=== PATIENT | female | born 1975 | race Two or more races ===

== ENCOUNTER 2017-04-03 09:19 | Emergency (ER) | payer MEDICAID ==
[~2017-04-03] VITALS: Ht 160 cm; Wt 96.6 kg
[2017-04-03 10:09] LABS: Basophils # (auto) 0.1 uL; Eosinophils # (auto) 0.4 uL; Lymphocytes # (auto) 2.7 uL; Lymphocytes % (auto) 27.7 % (10.0-50.0); Monocytes # (auto) 0.4 uL; Nucleated Red Blood Cells % 0.1 %
[2017-04-03 10:10] LABS: Basophils % (auto) 1.1 % (0.0-2.0); Eosinophils % (auto) 3.8 % (0.0-7.0); Mean Corpuscular Hemoglobin 23.8 pg (28.0-32.0); Mean Corpuscular Hgb Conc. 32.5 g/dL (32.0-36.0); Mean Corpuscular Volume 73.3 fL (80.0-100.0); Monocytes % (auto) 4.4 % (0.0-12.0); Platelet Count (auto) 326 10^3/uL (140-450); Red Cell Distribution Width 18.1 % (11.8-14.3); White Blood Cell 9.6 10^3/uL (4.4-10.8)
[2017-04-03 10:33] LABS: Albumin 3.4 g/dL (3.4-5.0); BUN/Creatinine Ratio 12.9; Calcium 8.9 mg/dL (8.5-10.1); Potassium 4.1 mmol/L (3.5-5.1)
[2017-04-03 10:35] LABS: Bilirubin, Total 0.2 mg/dL (0.2-1.0); Total Protein 8.2 g/dL (6.4-8.2)
[2017-04-03] MEDS: KETOROLAC TROMETH 30 MG/ML 1ML VIAL IV ONE (15:36)
[2017-04-03] MEDS: METOCLOPRAMIDE HCL 5MG/ml INJ 2ml VIAL IV ONE (15:36)
[2017-04-03] MEDS: SODIUM CHLORIDE 0.9% 500 ML IVB ONE (15:36)
[2017-04-03 16:52] LABS: Urine Bilirubin Negative (Negative); Urine Blood Negative /uL (Negative); Urine Color Yellow (Yellow); Urine Glucose Normal (Normal); Urine Ketone Negative (Negative); Urine Nitrite Negative (Negative); Urine RBC <1 /hpf (0 - 4); Urine Squamous Epithelial Cell FEW /hpf (<5); Urine Urobilinogen Normal (Negative)
[2017-04-03 17:31] VITALS: BP 164/82
== END 2017-04-03 17:40 | disposition home or self-care (01) ==
LOC: ER 09:19
DX: K76.0 Fatty (change of) liver, not elsewhere classified (principal); Z82.49 Family history of ischemic heart disease and other diseases of the circulatory system
CPT/HCPCS: 36415; 76705; 80053; 81001; 82150; 83690; 84702; 85025; 96361; 96374; 96375; 99285; J1885; J2765

== ENCOUNTER 2018-07-01 17:36 | Emergency (ER) | payer MEDICAID ==
[~2018-07-01] VITALS: Ht 162.6 cm; Wt 98.4 kg
[2018-07-01 17:54] VITALS: BP 169/82
== END 2018-07-01 23:09 | disposition left against medical advice (07) ==
LOC: ER 17:36
DX: M25.561 Pain in right knee (principal); Z53.21 Procedure and treatment not carried out due to patient leaving prior to being seen by health care provider
CPT/HCPCS: 73562

== ENCOUNTER 2024-03-04 10:16 | Emergency (ER) | payer MEDICAID ==
[~2024-03-04] VITALS: Ht 160 cm; Wt 85.5 kg
[2024-03-04] MEDS: cloNIDine HCL 0.1 MG TAB PO ONE (11:32)
[2024-03-04] MEDS: ACETAMINOPHEN 500 MG TAB PO ONE (11:32)
[2024-03-04] MEDS: INSULIN LISPRO (HUMAN) 100 UNITS/ML ML SC ONE ×2 (11:37→15:00)
[2024-03-04 11:39] VITALS: PULSE 100; RESP 18; O2SAT 98
[2024-03-04 11:52] LABS: Basophils # (auto) 0 10 ^3/uL (0-0.2); Basophils % (auto) 0.6 % (0.0-2.0); Eosinophils # (auto) 0.2 10 ^3/uL (0-0.8); Eosinophils % (auto) 3.2 % (0.0-7.0); Hematocrit 36.6 % (36.0-46.0); Hemoglobin 11.8 g/dL (12.2-16.2); Lymphocytes % (auto) 30.7 % (10.0-50.0); Mean Corpuscular Hemoglobin 20.4 pg (28.0-32.0); Mean Corpuscular Hgb Conc. 32.3 g/dL (32.0-36.0); Mean Corpuscular Volume 63.2 fL (80.0-100.0); Monocytes # (auto) 0.4 10 ^3/uL (0-1.3); Monocytes % (auto) 5.6 % (0.0-12.0); Neutrophils # (auto) 3.8 10 ^3/uL (1.6-8.6); Neutrophils % (auto) 59.9 % (37.0-80.0); Nucleated Red Blood Cells % 0.1 %; Platelet Count (auto) 265 10^3/uL (140-450); White Blood Cell 6.4 10^3/uL (4.4-10.8)
[2024-03-04 12:16] LABS: Alanine Aminotransferase 54 U/L (7-40); Alkaline Phosphatase 104 U/L (46-116); Anion Gap 9 (5-15); BUN/Creatinine Ratio 11.5 (10.0-20.0); Blood Urea Nitrogen 7 mg/dL (9-23); Calcium 9.3 mg/dL (8.7-10.4); Carbon Dioxide 24 mmol/L (20-31); Chloride 100 mmol/L (98-107); Glucose 288 mg/dL (74-106); Magnesium 1.5 mg/dL (1.6-2.6); Sodium 133 mmol/L (136-145)
[2024-03-04 12:17] LABS: Albumin 4.1 g/dL (3.2-4.8); Aspartate Aminotransferase 55 U/L (13-40); Bilirubin, Total 0.4 mg/dL (0.2-1.0); Total Protein 7.5 g/dL (5.7-8.2)
[2024-03-04 12:25] LABS: Urine Bacteria None Seen /hpf (None Seen)
[2024-03-04 12:36] LABS: Urine Blood Negative /uL (Negative); Urine Clarity Turbid (Clear); Urine Color Light-Yellow (Yellow); Urine Hyaline Cast FEW /lpf (0 - 2); Urine Protein, UAD Negative (Negative); Urine Specific Gravity 1.027 (1.001-1.035); Urine Urobilinogen Normal (Negative); Urine WBC 2 /hpf (0 - 5)
[2024-03-04 13:04] LABS: Anisocytosis Slight; Hypochromia Marked; Tear Drop Cells MODERATE
[2024-03-04 13:05] LABS: Platelet Estimate Adequate
[2024-03-04 14:45] VITALS: BP 132/76; PULSE 102; RESP 16; TEMP 97.8; O2SAT 98
[2024-03-04] MEDS ORDERED: GLIM2TAB33 PO (14:53)
[2024-03-04] MEDS: MAGNESIUM OXIDE 400 MG TAB PO ONE (15:12)
== END 2024-03-04 15:13 | disposition home or self-care (01) ==
LOC: ER 10:16
DX: E11.65 Type 2 diabetes mellitus with hyperglycemia (principal); G44.209 Tension-type headache, unspecified, not intractable; I10 Essential (primary) hypertension
CPT/HCPCS: 36415; 71046; 80053; 81001; 82962; 83735; 85025; 93005; 96372; 99285; J1815